=== PATIENT | male | born 1935 | race Caucasian/White ===

== ENCOUNTER 2019-09-15 09:18 | Inpatient (IN) | payer OTHER ==
[~2019-09-15] VITALS: Ht 180.3 cm; Wt 87.5 kg
[2019-09-15 11:06] VITALS: BP 129/66
[2019-09-15 11:36] LABS: ABSOLUTE LYMPHOCYTES 1.2 thou/uL (0.8-5.3); ABSOLUTE MONOCYTES 0.8 thou/uL (0.0-1.2); ABSOLUTE NEUTROPHILS 6.1 thou/uL (1.6-8.1); BASOPHILS 0.5 %; EOSINOPHILS 0.6 %; HEMOGLOBIN 11.3 gm/dL (14.0-18.0); MCH 34.1 pg (26.0-34.0); MCHC 34.3 g/dL (28.0-37.0); MCV 99.6 fL (80.0-100.0); MONOCYTES 9.4 %; MPV 7.9 fl. (7.2-11.1); NUCLEATED RBCS 0 /100WBC; PLATELET COUNT* 267 thou/uL (150-400); POLYS 74.5 %; RBC 3.31 mil/uL (4.50-6.00); RDW-CV 13.7 % (10.5-14.5); WBC 8.2 thou/uL (4.0-11.0)
[2019-09-15 11:46] LABS: APTT 30.8 Seconds (25.0-31.3); INR 1.1; PROTIME 11.3 Seconds (9.20-11.50)
[2019-09-15] MEDS ORDERED: AMLODIPINE-BEN1 EACH PO (11:52)
[2019-09-15] MEDS ORDERED: RAMIPRIL10 MG PO (11:54)
[2019-09-15] MEDS ORDERED: TAMSULOSIN HCL0.4 MG PO (11:55)
[2019-09-15] MEDS ORDERED: LOPRESSOR50 MG PO (11:56)
[2019-09-15] MEDS ORDERED: FISH OIL 1,2001 EAC4 PO (11:57)
[2019-09-15] MEDS ORDERED: FUROSEMIDE 40 M40 MG PO (11:58)
[2019-09-15] MEDS ORDERED: NORCO 10-325 T1 EACH PO (12:00)
[2019-09-15] MEDS ORDERED: ASA81BEC PO (12:01)
[2019-09-15] MEDS ORDERED: LEXAPRO5 MG PO (12:02)
[2019-09-15] MEDS ORDERED: BIDIL TABLET1 EACH PO (12:05)
[2019-09-15] MEDS ORDERED: NITROSTAT0.4 M1 SUBLING (12:06)
[2019-09-15 12:17] LABS: ALBUMIN 3.5 g/dL (3.4-5.0); ALKALINE PHOSPHATASE 41 U/L (46-116); ANION GAP 10 mmol/L (7-16); BUN 34 mg/dL (7-18); CALCIUM 8.7 mg/dL (8.5-10.1); CHLORIDE 102 mmol/L (98-107); CO2 24 mmol/L (21-32); CREATININE 1.4 mg/dL (0.6-1.3); GLUCOSE 97 mg/dL (70-99); NT-PRO BRAIN NAT PEPTIDE 1588 pg/mL (<300); POTASSIUM 4.5 mmol/L (3.5-5.1); SGOT 14 U/L (15-37); SGPT 20 U/L (30-65); SODIUM 136 mmol/L (136-145); TOTAL BILIRUBIN 0.5 mg/dL (<0.1-1.0); TOTAL PROTEIN 7.3 g/dL (6.4-8.2); TROPONIN-I LEVEL <0.06 ng/mL (<0.06)
--- NOTE | 2019-09-15 13:12 | EKG ---
[place] [address] ELECTROCARDIOGRAM REPORT Name: FRENCH MARINELLI Room: [address] ADM IN M.R.#: [id number] Admission: 09/15/19 Attend Phys: Josemanuel Taylor Discharge: Date of : 31 Date of Service: 09/15/19 1131 Report #: [id number] THIS REPORT FOR: //name// [facility] Test Date: 2019-09-15 Test Time: 11:31:25 Pat Name: FRENCH MARINELLI Department: Room: [facility] Gender: M Executive Communications Manager: : 1935 Requested By: Josemanuel Taylor Order Number: [id number] Otf MD: Rancho Rainey Measurements Intervals [place] Rate: 84 P: [place]: QRS: -60 QRSD: 171 T: 105 QT: 471 QTc: 557 Interpretive Statements Accelerated junctional rhythm Left bundle branch block Compared to ECG 04/02/2006 08:16:00 Accelerated junctional rhythm now present Left bundle-branch block now present Sinus rhythm no longer present First degree AV block no longer present T-wave abnormality no longer present Electronically Signed On 09-15-2019 13:11:33 CDT by Rancho Rainey [email or web address] <ELECTRONICALLY SIGNED> By: Rancho Rainey MD, FAC 09/15/19 1311 1131 1131 Rancho Rainey MD, [facility] /EPI
[2019-09-15 13:32] LABS: URINE BILIRUBIN NEGATIVE (Negative); URINE BLOOD NEGATIVE (Negative); URINE CLARITY CLEAR; URINE COLOR YELLOW; URINE GLUCOSE-RANDOM NEGATIVE (Negative); URINE KETONES TRACE (Negative); URINE LEUKOCYTES-REFLEX NEGATIVE (Negative); URINE NITRITE-REFLEX NEGATIVE (Negative); URINE PROTEIN NEGATIVE (Negative); URINE SPECIFIC GRAVITY 1.025 (1.005-1.030); URINE UROBILINOGEN 0.2 E.U./dl (0.2-1.0)
[2019-09-15 16:06] VITALS: BP 100/47
[2019-09-15 20:06] VITALS: BP 126/59
[2019-09-16 00:11] VITALS: BP 129/64
[2019-09-16 03:23] LABS: ABSOLUTE MONOCYTES 1.1 thou/uL (0.0-1.2); ABSOLUTE NEUTROPHILS 7.1 thou/uL (1.6-8.1); BASOPHILS 0.4 %; EOSINOPHILS 0.4 %; HEMATOCRIT 32.9 % (42.0-52.0); HEMOGLOBIN 11.3 gm/dL (14.0-18.0); LYMPHOCYTES 11.1 %; MCH 34.4 pg (26.0-34.0); MCHC 34.4 g/dL (28.0-37.0); MCV 99.8 fL (80.0-100.0); MONOCYTES 11.9 %; NUCLEATED RBCS 0 /100WBC; PLATELET COUNT* 263 thou/uL (150-400); POLYS 76.2 %; RDW-CV 13.9 % (10.5-14.5); WBC 9.3 thou/uL (4.0-11.0)
[2019-09-16 03:40] LABS: ALBUMIN 3.4 g/dL (3.4-5.0); CALCIUM 8.6 mg/dL (8.5-10.1); CREATININE 1.3 mg/dL (0.6-1.3); MAGNESIUM 2.5 mg/dL (1.8-2.4); PHOSPHORUS* 3.7 mg/dL (2.5-4.9); POTASSIUM 4.6 mmol/L (3.5-5.1); TOTAL BILIRUBIN 0.5 mg/dL (<0.1-1.0); TOTAL PROTEIN 6.7 g/dL (6.4-8.2)
[2019-09-16 04:18] LABS: BE -4.6 mmol/L (-2 to +3); PCO2 31.7 mmHg (35.0-45.0); PO2 99.4 mmHg (75.0-100.0); pH 7.403 (7.340-7.450)
[2019-09-16 04:19] VITALS: BP 124/61
--- NOTE | 2019-09-16 05:06 | NUR ---
PATIENT AWAKE MOST OF THE NIGHT. PT IS VERY CONFUSED AND IMPULSIVE, UNCOOPERATIVE AT TIMES. PT STATES HE CANNOT BREATHE; SATS AT 97% ON ROOM AIR. PT PLACED ON 2L PER NASAL CANNULA. PT VOIDS PER URINAL. PT REFUSED DRESSING PLACED ON HIP, BOTTOM OR BACK LT THIGH. PT APPEARED TO HAVE FLUID OVERLOAD AT BEGINNING OF SHIFT. DR SMYTH NOTIFIED AND ORDERS GIVEN. PT WITH NORMAL BREATHING AT THIS TIME. PT CURRENTLY IS SLEEPING. FREQUENTLY USED ITEMS AND CALL LIGHT WITHIN REACH. SIDERAILS UPX2 AND BED ALARM ON. WILL CONTINUE TO MONITOR.
[2019-09-16 08:00] VITALS: BP 143/68
--- NOTE | 2019-09-16 11:11 | CON ---
[address] [address] CONSULTATION Name: FRENCH MARINELLI Room: [address] IN M.R.#: [id number] Admission: 09/15/19 Attend Phys: Fernando Galeano Discharge: Date of : 31 Report #: [id number] THIS REPORT FOR: //name// cc: Denver Durant Russell J. DO ~ THIS REPORT FOR: //name// CC: Denver Taylor DATE OF SERVICE: 09/15/2019 INFECTIOUS DISEASE CONSULTATION ATTENDING PHYSICIAN: Josemanuel Taylor DO REASON FOR EVALUATION: Left lower extremity wounds complicated by skin and soft tissue infection/cellulitis. HISTORY OF PRESENT ILLNESS: Chart reviewed, the patient examined. This is an 84-year-old gentleman with known history of cardiomyopathy with congestive heart failure, who has got very limited mobility, apparently has lower extremity edema, had been followed by the wound care center due to wounds notably the distal dorsal to proximal aspect of his left lower extremity and does have a decubitus ulcer, I think, on his buttock as well. He was [facility] and was subsequently admitted directly. He was encephalopathic. He is not able to give any additional history. He is quite anxious at this point. It is not clear if he has had any fevers. He is on supplemental oxygen. Evaluation was undertaken including laboratory. Lactic acid was slightly elevated at 2.1, repeat was 2.7. He does have a borderline elevated creatinine of 1.4. Urinalysis was unremarkable. Chest x-ray showed no acute process. He was empirically started on antibiotic therapy with vancomycin as well as ceftriaxone. ALLERGIES: None known. CURRENT MEDICATIONS: Include tamsulosin, vancomycin, isosorbide dinitrate, metoprolol, hydralazine, lisinopril, furosemide, citalopram, aspirin, nitroglycerin, ceftriaxone, alprazolam, and nicotine patch. PAST MEDICAL HISTORY: History of hypertension, known atherosclerotic coronary artery disease with previous aortocoronary artery bypass grafting. SOCIAL HISTORY: Nonsmoker, no ethanol, no illicit drug use. FAMILY HISTORY: [place] [address] CONSULTATION Name: FRENCH MARINELLI Room: [address]#: [id number] Admission: 09/15/19 Attend Phys: Fernando Galeano Discharge: Date of : 31 Report #: [id number] REVIEW OF SYSTEMS: Not reliably obtained. PHYSICAL EXAMINATION: GENERAL: Appears chronically ill, undernourished. He is quite anxious, difficult to redirect, trying to answer questions and appears undernourished. VITAL SIGNS: Temperature 98, pulse 85, respirations 18, blood pressure 129/66. SKIN: Warm, dry, no rashes. HEENT: Normocephalic. Extraocular muscles intact. NECK: Supple. LUNGS: Scattered coarse breath sounds. HEART: Regular, distant. I do not appreciate murmur. ABDOMEN: Seems to be unremarkable. There is no apparent tenderness, no peritoneal signs. EXTREMITIES: Bilateral lower extremities have edema. Left has extensive compression throughout its length. GENITOURINARY: Deferred. RECTAL: Deferred. LABORATORY DATA: I did review the available photographs from today. Chest x-ray, no acute process. Lactic acid 2.7. Urinalysis unremarkable. Venous Doppler showed no evidence of deep venous thrombosis. Electrolytes: Sodium 136, potassium 4.5, chloride 102, bicarbonate is 24, anion gap of 10, BUN and creatinine 34 and 1.4. LFTs unremarkable. Albumin of 3.5, total protein 7.3. CRP of 8.3. CBC: White count of 8.2, H and H 11.3 and 33.0, platelets of 267. ASSESSMENT AND PLAN: Left lower extremity inflammatory eruption, multiple wounds, component of skin and soft tissue infection with cellulitis. We will continue empiric antimicrobial therapy. Would expect skin related or specifically most likely Staph and/or strep. At this point, I do not know what his baseline is. He certainly is quite tenuous. We will try to add some incentive spirometry. Monitor expectantly. <ELECTRONICALLY SIGNED> By: Shiv Briseno MD 09/16/19 1111 1440 [id number] Briseno MD /nt
[2019-09-16 16:02] VITALS: BP 126/56
--- NOTE | 2019-09-16 16:08 | NUR ---
Cm spoke with Pt's dtr via phone. Pt normally resides at home with dtr. Dtr assists with cares as needed. Dtr completes IADLs. Pt was a direct admit from his Drs office. Per dtr, she has been managing Pt's wounds at home. Dtr states that she noticed the leg wound on 07/26 and noticed the hip wound on 09/04, dtr states that she has been taking care of them the best that she could, prior to his Drs appt yesterday. Pt has a RW and cane. No hx of HH. Hx of skilled at a facility in [place] last year after Pt was at [facility]. Dtr is hopeful that Pt will be able to return home at [place]. JOURDAN discussed possible need for skilled. Following for appropriate dispo.
--- NOTE | 2019-09-16 16:57 | NUR ---
ASSUMED PT CARE AT 0800, AOX TO SELF, CONFUSED. O2 SAT 90'S RA. TRACING SR BBB, PT COMPLAINS PAIN, MEDS GIVEN WITH RELIEF. WOUND NOTED ON L HIP, LEG. R BUTTOCKS. CELLULITIS NOTED ON BI LOWER EXT. IV ACCESS INTACT, ON ANTIBIOTIC. AM ASSESSMENT CHARTED, FALL RISK, CLOSELY MONITOR.
[2019-09-16 20:10] VITALS: BP 122/56
[2019-09-17] VITALS (7 sets, daily range): BP systolic 124–156; BP diastolic 55–79
[2019-09-17 03:58] LABS: HEMATOCRIT 32.8 % (42.0-52.0); HEMOGLOBIN 11.1 gm/dL (14.0-18.0); MCH 34.2 pg (26.0-34.0); MCHC 33.9 g/dL (28.0-37.0); MCV 100.7 fL (80.0-100.0); MPV 8.3 fl. (7.2-11.1); RBC 3.25 mil/uL (4.50-6.00); RDW-CV 14.3 % (10.5-14.5)
[2019-09-17 04:23] LABS: ALBUMIN 3.2 g/dL (3.4-5.0); CALCIUM 8.4 mg/dL (8.5-10.1); CREATININE 1.3 mg/dL (0.6-1.3); MAGNESIUM 2.5 mg/dL (1.8-2.4); PHOSPHORUS* 3.8 mg/dL (2.5-4.9); POTASSIUM 4.5 mmol/L (3.5-5.1); TOTAL BILIRUBIN 0.4 mg/dL (<0.1-1.0)
--- NOTE | 2019-09-17 07:29 | NUR ---
PT CARE ASSUMED AT 1930. SAT MAINTAINED IN RA. PT IS CONFUSED. DENIES PAIN AND SOB. INCONTINENT OF BOWEL AND BLADDER. CALL LIGHT WITHIN REACH AND BED IN LOW POSITION. HOURLY ROUNDING DONE FOR PT SAFETY.
--- NOTE | 2019-09-17 12:32 | NUR ---
WOUND NURSE: PATIENT SEEN TO ADDRESS PAULA ON LEFT LOWER LEG AND LEFT ISCHIAL AREA. LEFT LOWER LEG PRESENTS WITH RUPTURED BLISTER ON THE CALF AREA AND SEVERAL SMALL POC LEONARD ANTERIOR TO THIS. THERE IS MODERATE AMOUNT OF SEROUS DRAINAGE. THERE IS PINK NONGRANULATING TISSUE IN THE WOUND BED. THERE IS 1 TO 2 PLUS PITTING EDEMA NOED. CLEANSED WITH SOAP AND WATER, RINSED WITH WATER, THEN PATTED DRY. APPLIED LOTION TO INTACT SKIN TOES TO KNEE. APPLIED XEROFORM GAUZE UNDER ABD, WRAPPED WITH KERLEX ROLL GAUZE UNDER SHELLEY WRAP. LEFT ISHIAL AREA MEASUREWS 4.0 X 4.5 CM AND IS UNSTAGEABLE DUE TO PRESENCE OF THICKENED ESCHAR COVERING >60% OF THE WOUND, THERE IS LIGHT BEIGE NONGRANULATING TISSUE OVER THE REMAINDER OF THE WOUND BED. THERE IS SEROUS DRAINAGE IN MODERATE AMOUNT NOTED ON OLD DRESSING. THERE IS NO PERIWOUND REDNESS, WARMTH, OR INDURATION. CLEANSED WITH SOAP AND WATER, RINSED WITH WATER, THEN PATTED DRY. APPLIED AQUACEL AG MOISTENED WITH MEDIHONEY, THEN COVERED WTIH BORDERED FOAM DRESSING. SMALL SKIN LESION ON THE RIGHT BUTTOCK MANGED WITH MOISTURE BARRIER OINTMENT. THIS WAS TOLERAED WELL BY THE PATIENT.
--- NOTE | 2019-09-17 14:45 | NUR ---
ASSUMED PT CARE AT 0800, AOX3, CONFUSED AT TIMES. O2 SAT 90'S RA. TRACING SR BBB ON TELE. PT COMPLAINS OF PAIN. MEDS GIVEN. BI LEG CELLULITIS NOTED. L LEG WRAP. WOUNDS DRESSING CHANGED TODAY. VSS, AM ASSESSMENT CHARTED, MEDS GIVEN PER MAR. CALL LIGHT WITHIN REACH. WILL CONTINUE TO MONITOR.
--- NOTE | 2019-09-17 15:45 | NUR ---
OPERATIONS RESEARCH DIRECTOR SPOKE TO KANDY MARINELLI (DAUGHTER) [phone] REGARDING POSSIBLE DISCHARGE PLAN FOR PATIENT TO GO TO A JAIL FACILITY OR HOME TO LIVE WITH HER AND RECEIVE HOME HEALTH SERVICES. DAUGHTER STRONGLY FELT SHE WANTED PATIENT TO BE DISCHARGED TO HOME WITH HOME HEALTH. CONSULTED WITH CEO [employer] AND WILL SEND HOME HEALTH REFERRALS TO [facility]. [facility] [phone]; [phone]
[2019-09-18 04:08] VITALS: BP 128/61
--- NOTE | 2019-09-18 05:42 | NUR ---
PT ORIENTED TO SELF. CONFUSED. THOUGHT HE WAS AT [facility]. MEDS GIVEN PER EMAR. PAIN MED GIVEN THIS SHIFT. RELIEVE NOTED. PT SLEPT WELL THIS SHIFT ON A RECLINER. MODERATE SIGN SOFT UNFORMED BM NOTED THIS SHIFT. PT VOID IN URINALS. WOUND DRESSINGS C/D/I. CALL LIGHT WITHIN REACH. HOURLY ROUNDINGS MADE. WILL CONTINUE TO MONITOR.
[2019-09-18 07:35] VITALS: BP 127/69
[2019-09-18 12:27] VITALS: BP 114/49
[2019-09-18 14:55] VITALS: BP 114/49
--- NOTE | 2019-09-18 17:44 | NUR ---
PT A&OX4 VSS. DRESSING TO LLE. C/D/I. WOUND TO L BUTTOCK WITH DRESSING IN PLACE. PT INCONTINENT AT TIMES. PT UP TO BSC WITH MINIMAL ASSIST. FALL PRECAUTIONS IN PLACE. IV TO LFA PATENT, NO REDNESS/SWELLING NOTED AT SITE. PT RESTS IN RECLINER AT PT REQUEST. EDEMA NOTED TO BLE PRIOR TO THIS SHIFT. PT UP SBA W/WALKER. PT TO DC TO HOME W/ HOME HEALTH ONCE CLEARED BY ID. PT REMAINS ON IV ABX AT THIS TIME PENDING CULTURE RESULTS. FAMILY CONTACTED TO CLARIFY DC PLAN, DGTR AGREES TO HOME HEALTH. [facility] CONTACTED TODAY. PT C/O CP THIS AFTERNOON, STATING IT HAPPENS "FREQUENTLY AT HOME AND HE USUALLY WALKS TO RELIEVE IT". NEW EKG ON CHART, EKG REMAINS UNCHANGED. NO FURTHER DISTRESS NOTED. PT RESTS IN ROOM IN VIEW OF NURSES STATION WITH CALL LIGHT IN REACH. WILL CONTINUE TO MONITOR. PAIN RESOLVED.
--- NOTE | 2019-09-18 18:52 | NUR ---
SPOKE WITH CHUCKIE IN , DR PLATA AND NURSING. SPOKE WITH PATIENT BRIEFLY. [facility] CONCERN RE: HOME ENVIRONMENT CLEANLINESS AND ABILITY TO CARE FOR WOUNDS. HE IS A&OX4 AND REFUSING SNF, IS THE DGTR WHO IS CO-DPOA. I SPOKE WITH DR. FARRIS WHO RELAYED CONCERNS FROM [place] OF PATIENT LIVING IN "FILTH, HOARDING SITUATION, COVERED IN FECES UPON ARRIVAL." I SPOKE WITH [place] MCKAY WHO IS CO-DPOA WITH PATIENT'S DAUGHTER KANDY. WOODY STATES THAT PATIENT IS ALERT AND THE DAUGHTER AND HE ARE CAPABLE "ENOUGH" THAT HE CAN'T FORCE THEM TO CLEAN THEIR HOME WHICH IS "FILTHY." BOTH ARE "HOARDERS." DAUGHTER HAS "MENTAL HEALTH ISSUES" AND BOTH ARE "AFRAID OF SEPARATION AND GOING OUTSIDE." STATES PATIENT HAS ANXIETY AND WALKS SOME BUT USUALLY SITS IN CHAIR AND CAN'T LAY DOWN BECAUSE OF SEVERE BACK PAIN. HE STATES THAT SISTER NEEDS EXPLICIT INSTRUCTIONS TO HAVE A CLEAN HOME AND TAKE CARE OF THE WOUNDS. RN NOTIFIED TO PLACE IN DISCHARGE INSTRUCTIONS. STATES THAT HE'S ABLE TO HELP MUCH THEY'LL LET HIM BUT THEY'LL STOP LETTING HIM HELP IF HE PUSHES TOO MUCH. HE WANTS TO HELP CLEAN THE ENVIRONMENT AND CARE FOR HIM BUT IS LIMITED BY THE DGTR AND PATIENT. ONLINE [facility] FORM COMPLETED: CONFIRMATION # [id number] [facility] NOTIFIED ME THEY RECEIVED THE FORM AND ARE "SENDING IT OUT."
[2019-09-18 19:50] VITALS: BP 122/60
[2019-09-19] VITALS: BP 149/65
[2019-09-19 04:00] VITALS: BP 140/64
--- NOTE | 2019-09-19 06:49 | NUR ---
PT HAD 3 LOOSE BMs THIA SHIFT. BOWEL INCONTINENCE X1. PT SLEPT ON RECLINER PER HIS USUAL. FALL PRECAUTION PLACE. CALL LIGHT WITHIN REACH. HOURLY ROUNDINGS MADE. WILL CONTINUE TO MONITOR.
[2019-09-19 07:45] VITALS: BP 142/61
[2019-09-19 12:40] VITALS: BP 116/64; BP 121/49
[2019-09-19 16:01] VITALS: BP 142/64
--- NOTE | 2019-09-19 18:18 | NUR ---
PT A&OX4 VSS. PT DC PENDING CULTURES PER ID PHYSICIAN. PT REPORTS LOOSE STOOLS. IV TO LFA PATENT, NO REDNESS/SWELLING TO SITE. DRESSING C/D/I. PT IN RECLINER PER HIS REQUEST. CHAIR ALARM IN PLACE. 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 [facility] CONTACTED AND INFORMATION SENT FOR ADMISSION TO THEIR SERVICE UPON DC TO HOME. PT RESTS IN ROOM WITH CALL LIGHT IN REACH. WILL CONTINUE TO MONITOR.
[2019-09-19 19:50] VITALS: BP 137/64
[2019-09-20 00:46] VITALS: BP 107/40
[2019-09-20 05:03] VITALS: BP 100/79
--- NOTE | 2019-09-20 06:52 | NUR ---
PT ALERT AND ORIENTED. VSS ON RA. MEDS GIVEN PER EMAR. PT SLEPT WELL THIS SHIFT. PT SLEPT ON RECLINER. WOUND DRESSINGS CHANGED THIS SHIFT. PICTURES TAKEN. CALL LIGHT WITHIN REACH. WILL CONTINUE TO MONITOR.
[2019-09-20 08:30] VITALS: BP 140/70
--- NOTE | 2019-09-20 10:11 | EKG ---
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 : 1935 Requested By: Josemanuel Taylor Order Number: [id number] Otf MD: Nahid Rosenthal Measurements Intervals [place] Rate: 85 P: [place]: QRS: -56 QRSD: 171 T: 120 QT: 444 QTc: 528 Interpretive Statements ventricular paced rhythm Compared to ECG 09/15/2019 11:31:25 No significant changes Electronically Signed On 09-20-2019 10:09:58 CDT by Nahid Rosenthal [email or web address] <ELECTRONICALLY SIGNED> By: Nahid Rosenthal MD, [facility] 09/20/19 1009 1433 1433 Nahid Rosenthal MD, [facility] /EPI
--- NOTE | 2019-09-20 10:39 | NUR ---
WOUND NURSE: PATIENT COMPLAINED OF DRESSING COVERING LEFT LEG IS IRRITATING HIS FOOT. REMOVED THE KERLEX AND SHELLEY WRAP TO DISCOVER THE VELCRO AND TWISTED KERLEX WAS MAKING HIM UNCOMFORTABLE. NO TISSUE TRAUMA WAS ASSOCIATED WITH THIS HOWEVER. REWRAPPED LLE FROM TOES TO KNEE USING 2 KERLEX ROLLS UNDER SHELLEY WRAP PLACED IN A FIGURE 8 FORMAT. PATIENT REPORTED THIS RESOLVED THE PROBLEM. PATIENT WITH 2 TO 3 PLUS FIRM PITTING EDEMA IN LEGS. CAPILLARY REFILL WAS 3 SECONDS AND PATIENT HAS PALPABLE PEDAL PULSES IN WRAPPED LEG. PATIENT BEING DISCHARGED TODAY AND WAS SCHEDULED TO FOLLOW UP IN [facility] TO SEE DR. GAGE DO. ON Friday09/29/19 AT 10:00 AM. APPOINTMENT CARD WAS PLACED ON THE FRONT OF HIS CHART.
[2019-09-20 11:58] VITALS: BP 122/48
[2019-09-20 12:29] VITALS: BP 114/49
--- NOTE | 2019-09-20 12:29 | NUR ---
ASSUMED CARE OF PT AT 0730, PT SITTING IN CHAIR, A&OX4, SATTING 96% ON RA AND C/O PAIN IN L FOOT. WOUND CARE NURSE RE-WRAPPED FOOT AND MEDS GIVEN PER MAR FOR PARTIAL PAIN RELIEF. TRACING SR WITH A 1ST DEGREE BBB ON THE CONTINUITY CLERK. PT GOAL IS TO DECREASE PAIN AND WORK ON DISCHARGING TO HOME TODAY. AM ASSESSMENT CHARTED, HOURLY ROUNDING OBSERVED, BED IN LOW POSITION, CALL LIGHT W/IN REACH, WILL CONTINUE POC.
[2019-09-20] MEDS ORDERED: MINOCYCLINE HC100 M2 PO (13:01)
--- NOTE | 2019-09-20 13:10 | NUR ---
FAXED TO [facility] THE DISCHARGE ORDERS, SUMMARY AND UPDATED WOUND CARE NOTE. CONFIRMED THAT THEY RECEIVED AND WILL CONTACT PATIENT'S DAUGHTER TO SCHEDULE TO SEE PATIENT. CONTACTED KANDY MARINELLI (DAUGHTER) [phone]. NOTIFIED NURSING UNIT. [facility] [phone]; [phone]
[2019-09-20 13:15] VITALS: BP 114/49
--- NOTE | 2019-09-20 14:27 | NUR ---
CM discharging to home today with [facility], JOURDAN updated Pt's dtr. JOURDAN received a call from JALEEL Garzon, she will f/u with Pt/family, JOURDAN provided [facility] with del Garzon [phone]
--- NOTE | 2019-09-20 17:07 | NUR ---
DISCHARGE ORDERS RECEIVED, DISCHARGE INSTRUCTIONS, CARE NOTES, PRESCIPTIONS AND F/U APPT GIVEN TO PT. PT COMMUNICATES UNDERSTANDING OF DISCHARGE TEACHING. IV AND HUMAN RESOURCE ASSISTANT REMOVED, PT AWAITING TRANSPORTATION FROM [facility]. JASON
== END 2019-09-20 17:05 | disposition home health service (06) | DRG 602 ==
LOC: M.WC 09:18 → M.2W 10:42
PROVIDERS: Internal Medicine; Surgery; ADMIT Internal Medicine
DX: L03.116 Cellulitis of left lower limb (principal); G93.41 Metabolic encephalopathy; R65.11 Systemic inflammatory response syndrome (SIRS) of non-infectious origin with acute organ dysfunction; E44.1 Mild protein-calorie malnutrition; F11.20 Opioid dependence, uncomplicated; N17.9 Acute kidney failure, unspecified; I43 Cardiomyopathy in diseases classified elsewhere; L03.115 Cellulitis of right lower limb; I11.0 Hypertensive heart disease with heart failure; I50.9 Heart failure, unspecified; G89.29 Other chronic pain; L89.309 Pressure ulcer of unspecified buttock, unspecified stage; F03.90 Unspecified dementia, unspecified severity, without behavioral disturbance, psychotic disturbance, mood disturbance, and anxiety; I25.10 Atherosclerotic heart disease of native coronary artery without angina pectoris; Z95.1 Presence of aortocoronary bypass graft; Z68.26 Body mass index [BMI] 26.0-26.9, adult; Z99.81 Dependence on supplemental oxygen; Z79.82 Long term (current) use of aspirin; Z79.899 Other long term (current) drug therapy

== ENCOUNTER → 2019-09-29 | Outpatient (CLI) | payer OTHER ==
[~2019-09-29] MED LIST: AMLODIPINE-BEN1 EACH PO; ASA81BEC PO; BIDIL TABLET1 EACH PO; FISH OIL 1,2001 EAC4 PO; FUROSEMIDE 40 M40 MG PO; LEXAPRO5 MG PO; LOPRESSOR50 MG PO; MINOCYCLINE HC100 M2 PO; NITROSTAT0.4 M1 SUBLING; NORCO 10-325 T1 EACH PO; RAMIPRIL10 MG PO; TAMSULOSIN HCL0.4 MG PO
== END ==
LOC: M.WC 04:57
DX: L97.821 Non-pressure chronic ulcer of other part of left lower leg limited to breakdown of skin (principal); L89.222 Pressure ulcer of left hip, stage 2; L02.419 Cutaneous abscess of limb, unspecified; I89.0 Lymphedema, not elsewhere classified; I11.0 Hypertensive heart disease with heart failure; I50.9 Heart failure, unspecified; I25.10 Atherosclerotic heart disease of native coronary artery without angina pectoris; F41.9 Anxiety disorder, unspecified; F32.9 Major depressive disorder, single episode, unspecified; Z86.14 Personal history of Methicillin resistant Staphylococcus aureus infection

== ENCOUNTER → 2019-10-06 | Outpatient (CLI) | payer OTHER | LOC: M.WC 03:23 | DX: L89.222 Pressure ulcer of left hip, stage 2 (principal); L02.416 Cutaneous abscess of left lower limb; I89.0 Lymphedema, not elsewhere classified; I11.0 Hypertensive heart disease with heart failure; I50.9 Heart failure, unspecified; I25.10 Atherosclerotic heart disease of native coronary artery without angina pectoris; F41.9 Anxiety disorder, unspecified; F32.9 Major depressive disorder, single episode, unspecified; Z86.14 Personal history of Methicillin resistant Staphylococcus aureus infection ==

== ENCOUNTER → 2019-10-13 | Outpatient (CLI) | payer OTHER | LOC: M.WC 03:15 | DX: L97.821 Non-pressure chronic ulcer of other part of left lower leg limited to breakdown of skin (principal); L89.222 Pressure ulcer of left hip, stage 2; L02.416 Cutaneous abscess of left lower limb; I89.0 Lymphedema, not elsewhere classified; I11.0 Hypertensive heart disease with heart failure; I50.9 Heart failure, unspecified; I25.10 Atherosclerotic heart disease of native coronary artery without angina pectoris; F41.9 Anxiety disorder, unspecified; F32.9 Major depressive disorder, single episode, unspecified; Z86.14 Personal history of Methicillin resistant Staphylococcus aureus infection; Z79.82 Long term (current) use of aspirin ==

== ENCOUNTER → 2019-10-20 | Outpatient (CLI) | payer OTHER | LOC: M.WC 05:25 | DX: L89.222 Pressure ulcer of left hip, stage 2 (principal); L97.821 Non-pressure chronic ulcer of other part of left lower leg limited to breakdown of skin; I89.0 Lymphedema, not elsewhere classified; I11.0 Hypertensive heart disease with heart failure; I50.9 Heart failure, unspecified; I25.10 Atherosclerotic heart disease of native coronary artery without angina pectoris; F41.9 Anxiety disorder, unspecified; F32.9 Major depressive disorder, single episode, unspecified; Z86.14 Personal history of Methicillin resistant Staphylococcus aureus infection; Z79.82 Long term (current) use of aspirin ==

== ENCOUNTER → 2019-10-27 | Outpatient (CLI) | payer OTHER | LOC: M.WC 02:39 | DX: L97.821 Non-pressure chronic ulcer of other part of left lower leg limited to breakdown of skin (principal); L02.416 Cutaneous abscess of left lower limb; L89.222 Pressure ulcer of left hip, stage 2; I89.0 Lymphedema, not elsewhere classified; I11.0 Hypertensive heart disease with heart failure; I50.9 Heart failure, unspecified; I25.10 Atherosclerotic heart disease of native coronary artery without angina pectoris; F41.9 Anxiety disorder, unspecified; F32.9 Major depressive disorder, single episode, unspecified; Z86.14 Personal history of Methicillin resistant Staphylococcus aureus infection; Z79.82 Long term (current) use of aspirin ==

== ENCOUNTER → 2019-11-03 | Outpatient (CLI) | payer OTHER | LOC: M.WC 01:40 | DX: L89.222 Pressure ulcer of left hip, stage 2 (principal); L02.416 Cutaneous abscess of left lower limb; I89.0 Lymphedema, not elsewhere classified; I11.0 Hypertensive heart disease with heart failure; I50.9 Heart failure, unspecified; I25.10 Atherosclerotic heart disease of native coronary artery without angina pectoris; F41.9 Anxiety disorder, unspecified; F32.9 Major depressive disorder, single episode, unspecified; Z79.82 Long term (current) use of aspirin; Z86.14 Personal history of Methicillin resistant Staphylococcus aureus infection ==

== ENCOUNTER → 2019-11-10 | Outpatient (CLI) | payer OTHER | LOC: M.WC 04:08 | DX: L89.223 Pressure ulcer of left hip, stage 3 (principal); I89.0 Lymphedema, not elsewhere classified; L02.416 Cutaneous abscess of left lower limb; I11.0 Hypertensive heart disease with heart failure; I50.9 Heart failure, unspecified; F32.9 Major depressive disorder, single episode, unspecified; F41.9 Anxiety disorder, unspecified; Z86.14 Personal history of Methicillin resistant Staphylococcus aureus infection; Z79.82 Long term (current) use of aspirin ==

== ENCOUNTER → 2019-11-17 | Outpatient (CLI) | payer OTHER | LOC: M.WC 04:41 | DX: L89.222 Pressure ulcer of left hip, stage 2 (principal); I89.0 Lymphedema, not elsewhere classified; I11.0 Hypertensive heart disease with heart failure; I50.9 Heart failure, unspecified; I25.10 Atherosclerotic heart disease of native coronary artery without angina pectoris; R60.9 Edema, unspecified; F41.9 Anxiety disorder, unspecified; F32.9 Major depressive disorder, single episode, unspecified; Z79.82 Long term (current) use of aspirin; Z86.14 Personal history of Methicillin resistant Staphylococcus aureus infection ==